=== PATIENT | male | born 1980 | race Caucasian/White ===

== ENCOUNTER 2019-08-21 18:24 | Emergency (ER) | payer OTHER ==
[~2019-08-21] VITALS: Ht 182.9 cm; Wt 117.5 kg
[2019-08-21 18:42] VITALS: Ht 182.9 cm; Wt 117.5 kg
[2019-08-21 20:46] VITALS: BP 131/73
== END 2019-08-21 20:46 | disposition home or self-care (01) ==
LOC: ED 18:24
DX: M54.6 Pain in thoracic spine (principal); M25.562 Pain in left knee; Z88.0 Allergy status to penicillin; V49.40XA Driver injured in collision with unspecified motor vehicles in traffic accident, initial encounter; Y93.I9 Activity, other involving external motion; Y92.413 State road as the place of occurrence of the external cause; Y99.8 Other external cause status
CPT/HCPCS: 72072